=== PATIENT | male | born 1990 | race Caucasian/White ===

== ENCOUNTER 2018-08-04 18:09 | Emergency (ER) | payer MEDICAID, OTHER | END 2018-08-04 20:47 | disposition home or self-care (01) | LOC: FTE 18:09 | DX: R21 Rash and other nonspecific skin eruption (principal) | CPT/HCPCS: 99283; Z7502 ==

== ENCOUNTER 2018-09-06 17:45 | Emergency (ER) | payer MEDICAID | END 2018-09-06 21:30 | disposition home or self-care (01) | LOC: FTE 17:45 | DX: R21 Rash and other nonspecific skin eruption (principal) | CPT/HCPCS: 99283; Z7502 ==